=== PATIENT | male | born 1945 | race Caucasian/White ===

== ENCOUNTER 2017-05-19 08:12 | Observation (INO) | payer MEDICARE, OTHER ==
[2017-05-19 09:08] LABS: ADD MAN DIFF? NO
[2017-05-19 09:11] LABS: WHITE BLOOD COUNT 5.7 10^3/ul (4.8-10.8)
[2017-05-19 09:11] LABS: BASOPHILS % 0.7 % (0.0-2.0); EOSINOPHILS # 0.7 10^3/ul (0.0-0.5); HEMATOCRIT 40.6 % (42.0-52.0); LYMPHOCYTES # 1.4 10^3/ul (0.8-2.9); LYMPHOCYTES % 24.6 % (15.0-51.0); MEAN CORPUSCULAR HEMOGLOBIN 29.4 pg (29.0-33.0); MEAN CORPUSCULAR HGB CONC 34.5 g/dl (32.0-37.0); MEAN CORPUSCULAR VOLUME 85.1 fl (82.0-101.0); MEAN PLATELET VOLUME 9.3 fl (7.4-10.4); MONOCYTE # 0.4 10^3/ul (0.3-0.9); MONOCYTES % 6.6 % (0.0-11.0); NEUTROPHIL # 3.2 10^3/ul (1.6-7.5); NEUTROPHILS % 55.9 % (39.0-77.0); PLATELET COUNT 187 10^3/UL (140-415); RED BLOOD COUNT 4.77 10^6/ul (4.70-6.10); RED CELL DISTRIBUTION WIDTH 12.8 % (11.5-14.5)
[2017-05-19] MEDS: ACETYLCYSTEINE 600 MG CAP PO (09:15)
[2017-05-19 09:29] LABS: ALANINE AMINOTRANSFERASE 33 IU/L (13-69); ALBUMIN 4.1 g/dl (3.3-4.9); ALBUMIN/GLOBULIN RATIO 1.13; ALKALINE PHOSPHATASE 133 IU/L (42-121); ANION GAP 13 (8-16); ASPARTATE AMINO TRANSFERASE 22 IU/L (15-46); BILIRUBIN,INDIRECT 0.7 mg/dl (0-1.1); BILIRUBIN,TOTAL 0.7 mg/dl (0.2-1.3); CARBON DIOXIDE 27 mmol/L (21-31); CHLORIDE 106 mmol/L (97-110); GLUCOSE 110 mg/dl (70-220); TOTAL PROTEIN 7.7 g/dl (6.1-8.1)
[2017-05-19 09:31] LABS: BLOOD UREA NITROGEN 20 mg/dl (7-20); CALCIUM 9.2 mg/dl (8.4-10.2); CREATININE 0.92 mg/dl (0.61-1.24); POTASSIUM 3.9 mmol/L (3.5-5.1); SODIUM 142 mmol/L (135-144)
[2017-05-19] MEDS ORDERED: CEFAZOLIN 2 GM/50 ML (PMX) 50 ML IVPB (09:46)
[2017-05-19] MEDS ORDERED: IODIXANOL LOCM 50 ML BTL (09:47)
[2017-05-19 09:51] LABS: INR 0.95; PARTIAL THROMBOPLASTIN TIME 32.7 Sec (25.0-35.0); PROTIME 12.8 Sec (11.9-14.9)
[2017-05-19] MEDS ORDERED: PROPOFOL 20 ML (09:51)
[2017-05-19] MEDS ORDERED: LIDOCAINE 1% (MDV) 20 ML INJ (09:51)
[2017-05-19] MEDS ORDERED: FENTAnyl 50 MCG/ML VIAL (09:52)
[2017-05-19] MEDS ORDERED: MIDAZOLAM 1 MG/ML 2 ML INJ (09:52)
[2017-05-19] MEDS ORDERED: POLYMYXIN/BACITRACIN 1L IRRIG (09:52)
[2017-05-19] MEDS ORDERED: LIDOCAINE 1%/EPI 30 ML INJ (09:54)
[2017-05-19 11:00] LABS: CREATINE KINASE 110 IU/L (23-200)
[2017-05-19] MEDS: SOD CHLORIDE 0.9% 500 ML IVPB (14:28)
[2017-05-19] MEDS: hydrALAzine 20 MG INJ IV (14:49)
[2017-05-19] MEDS: morphine 2 MG INJ IV (14:49)
[2017-05-19] MEDS ORDERED: ONDANSETRON 4 MG INJ (16:12)
[2017-05-19] MEDS: HYDROCODONE/APAP (5/325) TAB PO (16:24)
[2017-05-19] MEDS: ONDANSETRON 4 MG INJ IV (16:25)
[2017-05-19] MEDS: ATORVASTATIN 40 MG TAB PO (21:45)
[2017-05-19] MEDS: FAMOTIDINE 20 MG TAB PO (21:45)
[2017-05-19] MEDS: CEFAZOLIN 1 GM/50 ML (PMX) 50 ML IVPB (21:46)
[2017-05-20] MEDS: HYDROCODONE/APAP (5/325) TAB PO ×2 (01:38→16:59)
[2017-05-20] MEDS: CEFAZOLIN 1 GM/50 ML (PMX) 50 ML IVPB ×2 (05:26→14:44)
[2017-05-20 08:26] LABS: ADD MAN DIFF? NO
[2017-05-20] MEDS: FUROSEMIDE 20 MG TAB PO (08:31)
[2017-05-20] MEDS: ASPIRIN (EC) 81 MG TAB PO (08:31)
[2017-05-20] MEDS: LISINOPRIL 10 MG TAB PO (08:32)
[2017-05-20] MEDS: FAMOTIDINE 20 MG TAB PO (08:32)
[2017-05-20 08:34] LABS: BASOPHILS % 0.6 % (0.0-2.0); EOSINOPHILS # 0.6 10^3/ul (0.0-0.5); EOSINOPHILS % 8.7 % (0.0-7.0); HEMATOCRIT 38.1 % (42.0-52.0); HEMOGLOBIN 12.9 g/dl (14.0-18.0); LYMPHOCYTES # 1.1 10^3/ul (0.8-2.9); LYMPHOCYTES % 16.3 % (15.0-51.0); MEAN CORPUSCULAR HEMOGLOBIN 29.2 pg (29.0-33.0); MEAN CORPUSCULAR HGB CONC 33.9 g/dl (32.0-37.0); MEAN CORPUSCULAR VOLUME 86.2 fl (82.0-101.0); MEAN PLATELET VOLUME 9.6 fl (7.4-10.4); MONOCYTE # 0.4 10^3/ul (0.3-0.9); MONOCYTES % 6.7 % (0.0-11.0); NEUTROPHIL # 4.4 10^3/ul (1.6-7.5); NEUTROPHILS % 67.4 % (39.0-77.0); PLATELET COUNT 168 10^3/UL (140-415); RED BLOOD COUNT 4.42 10^6/ul (4.70-6.10); RED CELL DISTRIBUTION WIDTH 13.1 % (11.5-14.5)
[2017-05-20 08:34] LABS: WHITE BLOOD COUNT 6.5 10^3/ul (4.8-10.8)
[2017-05-20 09:10] LABS: ANION GAP 13 (8-16); BLOOD UREA NITROGEN 17 mg/dl (7-20); CALCIUM 8.8 mg/dl (8.4-10.2); CARBON DIOXIDE 25 mmol/L (21-31); CHLORIDE 108 mmol/L (97-110); GLUCOSE 107 mg/dl (70-220); POTASSIUM 3.8 mmol/L (3.5-5.1); SODIUM 142 mmol/L (135-144)
== END 2017-05-20 17:39 | disposition home or self-care (01) ==
LOC: SDS 08:12 → REC 14:29 → MS4 20:07
DX: I50.9 Heart failure, unspecified (principal); I25.5 Ischemic cardiomyopathy; I10 Essential (primary) hypertension; E78.5 Hyperlipidemia, unspecified; I44.7 Left bundle-branch block, unspecified; Z79.82 Long term (current) use of aspirin
CPT/HCPCS: 33249; 71045; 80048; 80053; 82550; 85025; 85610; 85730; 93005; 99217